=== PATIENT | female | born 1990 | race Caucasian/White ===

== ENCOUNTER → 2017-01-31 | Outpatient (CLI) | payer OTHER ==
[2014-06-21 10:08] VITALS: BP 126/82
[~2017-01-31] MED LIST: TRAM50TA PO
--- NOTE | 2017-01-31 16:23 | RAD ---
Pelvic ultrasound, 01/31/2017: History: Pelvic pain Transabdominal and transvaginal scans were obtained. The uterus measures 8 x 4 x 5 cm. The central uterine echo complex measures 3 mm. A couple of small calcifications are seen at the endometrial level. No uterine mass is evident. The right ovary measures 5.3 x 2.1 x 1.9 cm. It contains small follicular cysts. Blood flow is present in the right ovary. The left ovary is enlarged measuring 5 x 5 x 4.6 cm. It contains a 4.8 cm mass which of medium echogenicity. Its margins are smooth. Its internal contents are heterogeneous. No definite internal color flow is seen. This is likely a hemorrhagic cyst. There is a trace amount of free fluid in the pelvis. IMPRESSION: 1. Heterogeneous left ovarian mass which may be a hemorrhagic cyst or endometrioma. A neoplastic etiology cannot be excluded and sonographic follow-up is suggested. 2. Trace amount of free fluid in the pelvis.
== END | disposition home or self-care (01) ==
LOC: US 15:34
PROVIDERS: ATTEND Physician Assistant
DX: R10.2 Pelvic and perineal pain (principal)
CPT/HCPCS: 76830; 76856